=== PATIENT | female | born 1975 | race Caucasian/White ===

== ENCOUNTER 2016-10-08 23:35 | Emergency (ER) | payer OTHER ==
[2016-10-08] MEDS ORDERED: FLEXERIL10 MG (23:50)
[2016-10-08] MEDS ORDERED: OMEPRAZOLE20 M1 (23:50)
[2016-10-08] MEDS ORDERED: IBUPROFEN (23:50)
[2016-10-08] MEDS ORDERED: SINGULAIR (23:51)
[2016-10-08] MEDS ORDERED: MACROBID100 M1 (23:51)
[2016-10-08] MEDS ORDERED: FIORICET 50-301 EACH (23:51)
== END 2016-10-09 00:43 | disposition home or self-care (01) ==
LOC: SED 23:35
DX: J02.9 Acute pharyngitis, unspecified (principal); J45.909 Unspecified asthma, uncomplicated; Z87.442 Personal history of urinary calculi; K21.9 Gastro-esophageal reflux disease without esophagitis; F17.200 Nicotine dependence, unspecified, uncomplicated; Z88.5 Allergy status to narcotic agent; Z88.8 Allergy status to other drugs, medicaments and biological substances
CPT/HCPCS: 99283

== ENCOUNTER 2016-10-25 08:17 | Emergency (ER) | payer OTHER ==
[~2016-10-25 08:17] MED LIST: FIORICET 50-301 EACH; FLEXERIL10 MG; IBUPROFEN; MACROBID100 M1; OMEPRAZOLE20 M1; SINGULAIR
== END 2016-10-25 09:42 | disposition home or self-care (01) ==
LOC: SED 08:17
DX: S41.111A Laceration without foreign body of right upper arm, initial encounter (principal); K21.9 Gastro-esophageal reflux disease without esophagitis; Z87.442 Personal history of urinary calculi; F17.200 Nicotine dependence, unspecified, uncomplicated; Z88.5 Allergy status to narcotic agent; Z88.8 Allergy status to other drugs, medicaments and biological substances; W18.30XA Fall on same level, unspecified, initial encounter; Y92.69 Other specified industrial and construction area as the place of occurrence of the external cause
CPT/HCPCS: 12002; 99283